=== PATIENT | female | born 1945 | race Caucasian/White ===

== ENCOUNTER 2019-05-09 09:52 | Emergency (ER) | payer OTHER ==
[~2019-05-09] VITALS: Ht 162.6 cm; Wt 56.7 kg
[~2019-05-09 09:52] MED LIST: AMBIEN10 MG; ATIVAN1 MG; BENTYL10 MG/ML; CARAFATE SU1 G/10 ML; COREG CR20 MG; COUMADIN5 MG; DIGOXIN0.25 MG/5; DIOVAN40 MG; ELIQUIS5 MG; LISINOPRIL20 MG; PROTONIX40 MG; TOPROL XL50 MG; XARELTO20 MG; ZANTAC300 MG; ZYRTEC10 M3
[2019-05-09] MEDS ORDERED: LISINOPRIL2.5 MG (10:56)
== END 2019-05-09 14:14 | disposition home or self-care (01) ==
LOC: ER 09:52
DX: R42 Dizziness and giddiness (principal)

== ENCOUNTER 2020-03-31 10:16 | Emergency (ER) | payer OTHER ==
[~2020-03-31] VITALS: Ht 165.1 cm; Wt 57.6 kg
[~2020-03-31 10:16] MED LIST changes: +LISINOPRIL2.5 MG
[2020-03-31] MEDS ORDERED: ACETAMINOPHEN500 M2 PO (15:18)
== END 2020-03-31 15:37 | disposition home or self-care (01) ==
LOC: ER 10:16
DX: S52.591A Other fractures of lower end of right radius, initial encounter for closed fracture (principal); S10.83XA Contusion of other specified part of neck, initial encounter; S90.01XA Contusion of right ankle, initial encounter; S80.01XA Contusion of right knee, initial encounter; S60.221A Contusion of right hand, initial encounter; S50.11XA Contusion of right forearm, initial encounter; S00.83XA Contusion of other part of head, initial encounter; I11.9 Hypertensive heart disease without heart failure; Z20.828 Contact with and (suspected) exposure to other viral communicable diseases; W01.0XXA Fall on same level from slipping, tripping and stumbling without subsequent striking against object, initial encounter; Y93.89 Activity, other specified; Y92.89 Other specified places as the place of occurrence of the external cause; Y99.8 Other external cause status

== ENCOUNTER 2021-01-06 09:44 | Outpatient (CLI) | payer OTHER ==
[~2021-01-06 09:44] MED LIST changes: +ACETAMINOPHEN500 M2 PO
== END 2021-01-06 10:55 | disposition home or self-care (01) ==
LOC: WOUND MED 09:44
PROVIDERS: ATTEND Surgery
DX: L97.812 Non-pressure chronic ulcer of other part of right lower leg with fat layer exposed (principal); R60.0 Localized edema
CPT/HCPCS: G0463; A4554; A4930; A6216; A6219

== ENCOUNTER 2021-01-13 09:45 | Outpatient (CLI) | payer OTHER | END 2021-01-13 10:00 | disposition home or self-care (01) | LOC: WOUND MED 09:45 | PROVIDERS: ATTEND Surgery | DX: L97.812 Non-pressure chronic ulcer of other part of right lower leg with fat layer exposed (principal); R60.0 Localized edema | CPT/HCPCS: G0463; A4554; A4930; A6216; A6219 ==

== ENCOUNTER 2021-01-20 08:24 | Outpatient (CLI) | payer OTHER | END 2021-01-20 09:00 | disposition home or self-care (01) | LOC: WOUND MED 08:24 | PROVIDERS: ATTEND Surgery | DX: L97.812 Non-pressure chronic ulcer of other part of right lower leg with fat layer exposed (principal); R60.0 Localized edema | CPT/HCPCS: G0463; A4554; A4930; A6216 ==